=== PATIENT | female | born 1995 | race Caucasian/White ===

== ENCOUNTER 2023-11-12 15:21 | Emergency (ER) | payer OTHER, SELFPAY ==
[2023-11-12 15:36] VITALS: BP 127/88; PULSE 107; RESP 20; TEMP 36.9; O2SAT 97
--- NOTE | 2023-11-12 16:36 | ED.URI ---
HPI - URI/Sore Throat General Chief Complaint: Upper Respiratory Infection Stated Complaint: cough/chest tight Time Seen by Provider: 11/12/23 16:30 Source: patient, family, RN notes reviewed and old records reviewed Mode of arrival: ambulatory Limitations: no limitations History of Present Illness HPI Narrative: 28-year-old female who presents to [facility] with complaints of 2 week duration cough with some tightness to her chest with cough. Patient states she some nasal drainage and congestion and has had history of bronchitis in the past. Patient has not tried any otc medications for her symptoms. Patient has even nonlabored respirations with no tachypnea noted. MD elicited complaint: cough Pertinent past history: other (bronchitis, vapes) Onset (ago): week(s) (2) Treatments prior to arrival: none Related Data Home Medications Medication Instructions Recorded Confirmed alprazolam 0.25 mg tablet 0.25 mg PO TID PRN Anxiety 11/12/23 11/12/23 dextroamphetamine-amphetamine 15 1 tablet PO BID 11/12/23 11/12/23 mg tablet escitalopram oxalate 10 mg tablet 10 mg PO DAILY 11/12/23 11/12/23 pantoprazole 40 mg tablet,delayed 40 mg PO DAILY 11/12/23 11/12/23 release topiramate 25 mg tablet 25 mg PO DAILY 11/12/23 11/12/23 valacyclovir 500 mg tablet 500 mg PO DAILY 11/12/23 11/12/23 zaleplon 10 mg capsule 10 mg PO QHS 11/12/23 11/12/23 ziprasidone HCl 60 mg capsule 60 mg PO BID 11/12/23 11/12/23 Allergies Allergy/AdvReac Type Severity Reaction Status Date / Time No Known Allergies Allergy Verified 11/12/23 16:30 Review of Systems Review of Systems: CONSTITUTIONAL: Denies malaise, chills, sweats, or fever. EYES: Denies visual changes, redness, or discharge. ENT: Reports rhinorrhea, congestion,no sinus pain, no otalgia and no sore throat. CARDIOVASCULAR: Denies chest pain, palpitations, or edema. RESPIRATORY: Reports cough.? Denies dyspnea.reports some chest tightness with cough GASTROINTESTINAL: Denies abdominal pain, nausea, vomiting, diarrhea SKIN: Denies rash or itching. MUSCULOSKELETAL: Denies myalgia. NEUROLOGIC: Denies headache. All systems reviewed & are unremarkable except as noted in HPI and below PMFSH Past Medical History Medical History (Updated 11/14/23 @ 16:31 by Cande Ding NP) Anxiety and depression Bipolar disorder Bronchitis Social History Social History (Updated 11/14/23 @ 16:32 by Cande Ding NP) Smoking status: Current every day smoker Tobacco type: e-cigarettes/vaping Alcohol use details: no alcohol use Substance use type: does not use Living arrangements: with family Gender identity (if verbalized by the patient): Female Comments At time of signature, agree with nursing past medical, surgical, social and family history. There is no relevant family history pertinent to the presenting complaint Exam Narrative: GENERAL: Well-appearing, well-nourished, and in no acute distress. HEAD: Normocephalic EYES: PERRLA, conjunctivae clear ENT: Nares clear, turbinates edematous and erythematous, clear discharge. Mucous membranes moist. TM pearly dunaway with dull light reflex bilaterally; no tragal tenderness. Oropharynx erythematous without lesions. Tonsils red enlarged and without exudate, no drooling, no hoarseness, no trismus, uvula midline.post nasal drainage noted NECK: Supple. No lymphadenopathy CHEST: Clear to auscultation, breath sounds equal. No wheezing, rhonchi, rales, or stridor. No respiratory distress, speaks in full sentences.cough SAO2 97% on room air HEART: Regular rate and rhythm. No murmur heard. SKIN: Warm, dry, no rash. NEURO: Alert and oriented x3. PSYCH: Normal mood and affect Course Course Emergency Course: Patient is aware of diagnosis, understands and agrees to treatment plan.? Anticipatory guidance given.? Patient agrees to follow-up as directed and is aware of reasons to seek care at the emergency depa
== END 2023-11-12 17:00 | disposition home or self-care (01) ==
PROVIDERS: Emergency Provider Registered Nurse
DX: J06.9 Acute upper respiratory infection, unspecified (principal); F17.290 Nicotine dependence, other tobacco product, uncomplicated; F41.9 Anxiety disorder, unspecified; F31.9 Bipolar disorder, unspecified
CPT/HCPCS: 87081; 87880; 99213; G0463